=== PATIENT | female | born 1985 | race Caucasian/White ===

== ENCOUNTER → 2020-08-24 | Outpatient (CLI) | payer OTHER | LOC: KOH-I 07-16 16:00 → US 16:00 → KOH-I 16:00 | DX: R13.13 Dysphagia, pharyngeal phase (principal) | CPT/HCPCS: 76536 ==

== ENCOUNTER → 2021-07-10 | Outpatient (CLI) | payer OTHER | LOC: HEART 5 08:30 | DX: R00.2 Palpitations (principal) ==

== ENCOUNTER 2022-01-25 20:50 | Emergency (ER) | payer OTHER | END 2022-01-25 21:01 | disposition home or self-care (01) | LOC: ER1 20:50 | DX: Z53.21 Procedure and treatment not carried out due to patient leaving prior to being seen by health care provider (principal) ==